=== PATIENT | female | born 1990 | race Caucasian/White ===

== ENCOUNTER 2022-06-20 18:23 | Emergency (ER) | payer OTHER, SELFPAY ==
--- NOTE | 2022-06-20 18:27 | ED.SKABFB ---
HPI - Skin/Abscess/Foreign Bdy General Chief complaint: Skin/Abscess/Foreign Body Stated complaint: Rash Time Seen by Provider: 06/20/22 18:28 Source: patient and RN notes reviewed History of Present Illness HPI narrative: patient is a 31-year-old female who presents to the Urgent Care with complaints of a rash to the chest, neck and back. Patient states she does notice that 30 minutes ago while standing over her stove cooking dinner. Patient states that this happened approximately 10 years ago and she had strep. Patient currently denies any upper respiratory symptoms. Denies any fever, sore throat, nausea or vomiting. Patient has not done anything [id number] for her rash. No other acute complaints. No acute distress noted. Patient aware of the plan of care. Some parts of this dictation were generated by voice recognition software and may contain typographical and/or grammatical inaccuracies. Related Data Home Medications Medication Instructions Recorded Confirmed sertraline 50 mg tablet 50 mg DAILY 06/20/22 06/20/22 Allergies Allergy/AdvReac Type Severity Reaction Status Date / Time No Known Allergies Allergy Unknown Unverified 06/20/22 18:41 Review of Systems Review of Systems: CONSTITUTIONAL: Denies fever, chills, or sweats. EYES: Denies visual changes, redness, or discharge. ENT: Denies rhinorrhea, congestion, sore throat, or otalgia. CARDIOVASCULAR: Denies chest pain, palpitations, or edema. RESPIRATORY: Denies cough or dyspnea. GASTROINTESTINAL: Denies abdominal pain, nausea, vomiting, or diarrhea. GENITOURINARY: Denies dysuria or hematuria. SKIN: Reports an itchy red rash to the chest, back and neck MUSCULOSKELETAL: Denies back pain, joint pain, or myalgia. NEUROLOGIC: Denies headache, numbness, or weakness. All other systems reviewed are negative, except as documented in HPI. [facility] Family History Family History (Updated 01/26/16 @ 23:19 by DOCTOR UNKNOWN) Mother Hypertension Family history of kidney disease Family history of diabetes mellitus in first degree relative Family history of coronary artery disease Social History Social History Smoking status: Never smoker Alcohol intake: never Comments At the time of my signature, I reviewed and agree with the nursing past medical, surgical, social, and family history. There is no relevant family history pertinent to the patient complaint. Exam Narrative: GENERAL: This is a well-nourished, well-developed patient, in no apparent distress. HEAD: normocephalic, atraumatic. EYES: PERRL. Sclera clear/white. Vision is grossly intact. EARS: External ears normal, auditory canals clear and without drainage, TMs normal without perforation. Hearing grossly intact. NOSE: External nose normal with no obvious nasal discharge, nares without redness, no rhinorrhea. THROAT: Mucous membranes moist, posterior pharynx clear. NECK: Neck supple CARDIOVASCULAR: Regular rate and rhythm without murmurs, gallops, or rubs. RESPIRATORY: Clear to auscultation. Breath sounds equal bilaterally. No wheezes, rales, or rhonchi. SKIN: patchy raised maculopapular erythemic dermatitis noted to the chest, neck and upper back NEURO: awake, alert, and oriented to person, place and time. There were no obvious focal neurologic abnormalities. EXTREMITIES: No clubbing, cyanosis, or edema. Course Course Level of Care: Express Care Visit Vital Signs Vital signs: Vital Signs Temperature 98.5 F 06/20/22 18:30 Pulse Rate 111 H 06/20/22 18:30 Respiratory Rate 14 06/20/22 18:30 Blood Pressure 133/78 06/20/22 18:30 Pulse Oximetry 98 06/20/22 18:30 Oxygen Delivery Room Air 06/20/22 18:30 Temperature 98.5 F 06/20/22 18:30 Pulse Rate 111 H 06/20/22 18:30 Respiratory Rate 14 06/20/22 18:30 Blood Pressure 133/78 06/20/22 18:30 Pulse Oximetry 98 06/20/22 18:30 Oxygen Delivery Room Air 06/20/22 18:30 reviewed MDM - Skin/
[2022-06-20 18:30] VITALS: BP 133/78; PULSE 111; RESP 14; TEMP 36.9; O2SAT 98
== END 2022-06-20 18:54 | disposition home or self-care (01) ==
PROVIDERS: Emergency Provider Nurse Practitioner Family
DX: L30.9 Dermatitis, unspecified (principal)
CPT/HCPCS: 87081; 99203; G0463

== ENCOUNTER 2023-09-19 11:27 | Emergency (ER) | payer OTHER, SELFPAY ==
[2023-09-19 11:35] VITALS: BP 133/70; PULSE 85; RESP 16; TEMP 36.8; O2SAT 99
--- NOTE | 2023-09-19 11:42 | ED.URI ---
HPI - URI/Sore Throat General Chief Complaint: Upper Respiratory Infection Stated Complaint: Cough/Congestion/Skin Problem Time Seen by Provider: 09/19/23 11:42 Source: patient Mode of arrival: ambulatory Limitations: no limitations History of Present Illness HPI Narrative: 32-year-old female presents with complaint of nasal congestion, sinus pressure, postnasal drainage, dry cough for several months. Has taken Benadryl [id number] to treat symptoms but no other medications. Patient also reports red bump to right inner thigh that seems to be improving. Afebrile. No chest pain or shortness of breath. All systems reviewed and negative except as noted above. Related Data Home Medications Medication Instructions Recorded Confirmed sertraline 50 mg tablet 50 mg DAILY 06/20/22 09/19/23 Allergies Allergy/AdvReac Type Severity Reaction Status Date / Time No Known Allergies Allergy Unknown Unverified 09/19/23 11:47 Review of Systems Review of Systems: CONSTITUTIONAL: Denies fever, chills, or sweats. EYES: Denies visual changes, redness, or discharge. ENT: Reports rhinorrhea, congestion sinus pressure. Denies sore throat, or otalgia. CARDIOVASCULAR: Denies chest pain, palpitations, or edema. RESPIRATORY: Reports cough. Denies dyspnea. GASTROINTESTINAL: Denies abdominal pain, nausea, vomiting, or diarrhea. GENITOURINARY: Denies dysuria or hematuria. SKIN: Denies rash or itching. Reports red bump to right thigh. MUSCULOSKELETAL: Denies back pain, joint pain, or myalgia. NEUROLOGIC: Denies headache, numbness, or weakness. PSYCHIATRIC: Denies anxiety or depression. All other systems reviewed are negative, except as documented in HPI. [facility] Family History Family History (Updated 01/26/16 @ 23:19 by DOCTOR UNKNOWN) Mother Hypertension Family history of kidney disease Family history of diabetes mellitus in first degree relative Family history of coronary artery disease Social History Social History Smoking status: Never smoker Alcohol intake: never Comments At time of signature, agree with nursing past medical, surgical, social and family history. There is no relevant family history pertinent to the presenting complaint. Exam Narrative: GENERAL: This is a well-nourished, well-developed patient, in no apparent distress. HEAD: normocephalic, atraumatic. EYES: PERRL. Sclera clear/white. Vision is grossly intact. EARS: External ears normal, auditory canals clear and without drainage, fluid bilateral TMs without erythema or perforation. Hearing grossly intact. NOSE: External nose normal with purulent nasal drainage, erythema and swelling to bilateral nares with maxillary sinus tenderness on palpation. THROAT: Mucous membranes moist, postnasal drainage NECK: Neck supple, non-tender without lymphadenopathy, masses or thyromegaly. CARDIOVASCULAR: Regular rate and rhythm without murmurs, gallops, or rubs. RESPIRATORY: Clear to auscultation. Breath sounds equal bilaterally. No wheezes, rales, or rhonchi. SKIN: warm, Dry, intact with no suspicious lesions or rash, good texture and turgor. small red bump to R inner thigh approx. 1 cm diameter without fluctuance or induration. possible ingrown hair. NEURO: awake, alert, and oriented to person, place and time. There were no obvious focal neurologic abnormalities. EXTREMITIES: No joint tenderness, effusion, or edema noted. Course Course Level of Care: Express Care Visit Vital Signs Vital signs: Vital Signs Temperature 36.8 C 09/19/23 11:35 Pulse Rate 85 09/19/23 11:35 Respiratory Rate 16 09/19/23 11:35 Blood Pressure 133/70 09/19/23 11:35 Pulse Oximetry 99 09/19/23 11:35 Oxygen Delivery Room Air 09/19/23 11:35 Temperature 36.8 C 09/19/23 11:35 Pulse Rate 85 09/19/23 11:35 Respiratory Rate 16 09/19/23 11:35 Blood Pressure 133/70 09/19/23 11:35 Pulse Oximetry 99 09/19/23 11:35 Oxygen Delivery Room Air 0
[2023-09-19 11:46] VITALS: BP 133/70; PULSE 85; RESP 16; TEMP 36.8; O2SAT 99
== END 2023-09-19 11:55 | disposition home or self-care (01) ==
PROVIDERS: Emergency Provider Nurse Practitioner Family
DX: J01.90 Acute sinusitis, unspecified (principal); L73.1 Pseudofolliculitis barbae
CPT/HCPCS: 99213; G0463